=== PATIENT | female | born 1965 | race Caucasian/White ===

== ENCOUNTER 2017-01-11 09:20 | Day surgery (SDC) | payer OTHER ==
[2017-01-11] MEDS ORDERED: Propofol 10 mg/ml Inj (20 ML) ONE ×2 (12:36→12:58)
[2017-01-11] MEDS ORDERED: Lactated Ringer's 500 ML IV SCH (13:00)
[2017-01-11 16:11] VITALS: BP 116/68; PULSE 69; RESP 17; TEMP 98.1; O2SAT 100
== END 2017-01-11 14:30 | disposition home or self-care (01) ==
LOC: C.ENDO 09:20
PROVIDERS: ATTEND Internal Medicine
DX: Z12.11 Encounter for screening for malignant neoplasm of colon (principal); R10.13 Epigastric pain; R14.0 Abdominal distension (gaseous); K64.8 Other hemorrhoids
CPT/HCPCS: 43239; 45378; 88305; J2704; J3010; J7120